=== PATIENT | female | born 1950 | race Two or more races ===

== ENCOUNTER 2022-04-12 22:32 | Emergency (ER) | payer BC ==
[~2022-04-12] VITALS: Ht 172.7 cm; Wt 69.9 kg
[2022-04-12] MEDS ORDERED: NORVASC2.5 M1 PO (22:45)
[2022-04-12] MEDS ORDERED: ZYRTEC10 M3 PO (22:46)
[2022-04-12] MEDS ORDERED: PEPCID AC20 MG PO (22:46)
[2022-04-13] MEDS ORDERED: GABAPENTIN400 MG PO (06:43)
== END 2022-04-13 06:48 ==
LOC: ER 22:32
DX: R07.89 Other chest pain (principal); M60.9 Myositis, unspecified; R06.6 Hiccough; Z87.19 Personal history of other diseases of the digestive system; Z88.6 Allergy status to analgesic agent; Z88.8 Allergy status to other drugs, medicaments and biological substances